=== PATIENT | male | born 1965 | race Caucasian/White ===

== ENCOUNTER 2018-07-07 20:26 | Emergency (ER) | payer OTHER ==
[~2018-07-07] VITALS: Ht 167.6 cm; Wt 72.6 kg
[~2018-07-07 20:26] MED LIST: CIPRO500 MG PO; KETO10TA2 PO
[2018-07-07] MEDS ORDERED: DICLOFENAC POTA50 MG PO (22:36)
[2018-07-07] MEDS ORDERED: CYCLOBENZAPRINE10 MG PO (22:36)
== END 2018-07-07 22:59 | disposition home or self-care (01) ==
LOC: ER 20:26
DX: M54.5 Low back pain (principal)